=== PATIENT | female | born 1985 | race Caucasian/White ===

== ENCOUNTER 2016-09-11 15:19 | Emergency (ER) | payer MEDICAID ==
[2016-09-11 16:58] VITALS: BP 128/81; PULSE 78; RESP 16; TEMP 98.1; O2SAT 100
--- NOTE | 2016-09-11 17:57 | UCPHY ---
H & P Time Seen by Provider: 09/11/16 17:29 Patient Type: New HPI/ROS: 31-year-old female presents requesting thyroid blood studies be done She has been followed by her OB for a new , and was noted to be hyperthyroid She would like to have further lab testing tonight. No nausea no vomiting no vaginal bleeding no abdominal pain Patient states she does have intermittent sore throat at times and wonders if this could be connected to her thyroid as well as chronic left-sided neck pain of several years duration. Review of systems As per HPI General no fever no chills no weakness HEENT no eye pain no eye discharge. No eye redness, no sore throat Respiratory no cough, no shortness of breath Cardiac no chest pain, no peripheral edema GI no abdominal pain, no diarrhea, no constipation, no nausea, no vomiting no flank pain, no hematuria, no dysuria Musculoskeletal no myalgias, no joint pain Heme no easy bruising, no easy bleeding Endo no polyuria, no polydipsia Skin no rashes, no pruritus Neuro no syncope, no dizziness, no headaches Psych is no suicidal ideation, no homicidal ideation Past Medical/Surgical History: First or 2nd trimester Newly diagnosed with high TSH has not follow up with Endocrine yet Social History: non contrib Smoking Status: Never smoked Physical Exam: Alert and oriented in no acute distress nontoxic appearance, afebrile Atraumatic normocephalic Oropharynx no erythema no swelling Neck no JVD, no thyroid swelling Lungs clear to auscultation, no respiratory distress Heart regular rate and rhythm Extremities no cyanosis clubbing edema Constitutional: Initial Vital Signs Temperature (C) 36.7 C 09/11/16 16:34 Heart Rate 78 09/11/16 16:34 Respiratory Rate 16 09/11/16 16:34 Blood Pressure 128/81 H 09/11/16 16:34 O2 Sat (%) 100 09/11/16 16:34 O2 Delivery Mode Room Air Allergies/Adverse Reactions: acetaminophen [From Tylenol] Allergy (Unverified 09/11/16 16:58) Home Medications: Medication Instructions Recorded 09/11/16 Medical Decision Making ED Course/Re-evaluation: Patient seen, requesting thyroid studies Physical exam within normal limits Vital signs stable Agreed to draw TSH, T3 and T4 Patient to follow these results with her registered nurse teacher - Data Points Laboratory Results: 09/11/16 18:05 TSH 0.538 uIU/mL uIU/mL (0.465-4.680) Thyroxine (T4) 7.49 ug/dL ug/dL (5.53-11.00) T3 Uptake 29.6 % % (23.5-40.6) Departure - Departure Disposition: Home, Routine, Self-Care Clinical Impression: First trimester , Hyperthyroidism Condition: Good Instructions: Hyperthyroidism (ED), Hyperthyroidism in (ED) Referrals: KINSEY STRAUSS MD [Other] - As per Instructions - PQRS PQRS Measurement: na
[2016-09-11 22:04] LABS: T3 (TRIIODOTHYRONINE) UPTAKE 29.6 % (23.5-40.6)
== END 2016-09-11 18:30 | disposition home or self-care (01) ==
LOC: CED 15:19
DX: O99.281 Endocrine, nutritional and metabolic diseases complicating pregnancy, first trimester (principal); E05.90 Thyrotoxicosis, unspecified without thyrotoxic crisis or storm; M54.2 Cervicalgia; Z3A.00 Weeks of gestation of pregnancy not specified
CPT/HCPCS: 84443-PO; 84479-90; 99203-PO; G0463-PO

== ENCOUNTER → 2016-09-12 | Outpatient (CLI) | payer MEDICAID | LOC: BRMIMAGING 16:22 | PROVIDERS: ATTEND Midwife | DX: O02.81 Inappropriate change in quantitative human chorionic gonadotropin (hCG) in early pregnancy (principal); Z3A.13 13 weeks gestation of pregnancy ==

== ENCOUNTER → 2016-10-19 | Outpatient (CLI) | payer MEDICAID | LOC: BMCIMAGING 08:29 | PROVIDERS: ATTEND Internal Medicine Endocrinology, Diabetes & Metabolism | DX: Z13.29 Encounter for screening for other suspected endocrine disorder (principal); O03.9 Complete or unspecified spontaneous abortion without complication | CPT/HCPCS: 76536-PO ==

== ENCOUNTER → 2016-10-28 | Outpatient (CLI) | payer MEDICAID, OTHER | LOC: FIMAGING 14:16 | PROVIDERS: ATTEND Midwife | DX: N83.291 Other ovarian cyst, right side (principal); N83.292 Other ovarian cyst, left side ==